=== PATIENT | female | born 1980 | race Caucasian/White ===

== ENCOUNTER 2016-06-04 19:04 | Emergency (ER) | payer OTHER ==
[2016-06-04 22:48] LABS: HEMOGLOBIN 12.5 gm/dl (12.3-15.3); RED BLOOD COUNT 4.29 M/UL (4.00-5.10); WHITE BLOOD COUNT 10.9 K/UL (4.5-11.0)
[2016-06-04 23:14] LABS: BUN/CREATININE RATIO 9 (0-10)
== END 2016-06-05 02:35 | disposition home or self-care (01) ==
LOC: ER1 19:04
PROVIDERS: Emergency Medicine
DX: R10.84 Generalized abdominal pain (principal); Z88.1 Allergy status to other antibiotic agents
CPT/HCPCS: 36415; 80053; 81001; 83690; 84703; 85025; 87086; 96361; 96374; 96375; 99284; J1885; J2270; J2405; J7050; Q9962